=== PATIENT | female | born 1990 | race Caucasian/White ===

== ENCOUNTER 2019-11-29 08:00 | Outpatient (CLI) | payer MEDICAID ==
[2019-11-29 12:59] LABS: HGB - HEMOGLOBIN 13.5 g/dL (12.0-16.0); MEAN CORPUSCULAR HEMOGLOBIN 29.6 pg (27.0-31.0); MEAN CORPUSCULAR HGB CONC 32.5 g/dL (32.0-36.0); MEAN CORPUSCULAR VOLUME 91.2 fL (81.0-99.0); RED BLOOD COUNT 4.56 10^6/uL (4.20-5.40); RED CELL DISTRIBUTION WIDTH 12.6 % (12.0-15.0); WHITE BLOOD COUNT 7.5 x10^3/uL (4.8-10.8)
[2019-11-29 13:52] LABS: FOLLICLE STIMULATING HORMONE 9.54 mIU/mL
[2019-11-29 13:53] LABS: LUTEINIZING HORMONE 18.37 mIU/mL
== END 2019-11-29 23:59 | disposition home or self-care (01) ==
LOC: LAB.WCP 08:00
PROVIDERS: ATTEND Family Medicine
DX: N92.6 Irregular menstruation, unspecified (principal)
CPT/HCPCS: 36415; 82670; 83001; 83002; 84443; 85027

== ENCOUNTER 2019-12-29 22:16 | Outpatient (CLI) | payer MEDICAID | END 2019-12-29 23:59 | disposition EMS.NT | LOC: EMS 22:16 | PROVIDERS: ATTEND Surgery | DX: R45.89 Other symptoms and signs involving emotional state (principal) ==

== ENCOUNTER 2020-08-31 08:00 | Outpatient (CLI) | payer MEDICAID ==
[2020-08-31 20:51] LABS: TRICHOMONAS VAGINALIS DNA NEGATIVE (NEGATIVE)
== END 2020-08-31 23:59 | disposition home or self-care (01) ==
LOC: LAB.R 08:00
PROVIDERS: ATTEND Obstetrics & Gynecology
DX: Z11.3 Encounter for screening for infections with a predominantly sexual mode of transmission (principal)
CPT/HCPCS: 87491; 87591; 87661

== ENCOUNTER 2020-10-16 11:42 | Outpatient (CLI) | payer MEDICAID ==
[2020-10-16 18:50] LABS: PROLACTIN 11.82 ng/mL
[2020-10-16 19:14] LABS: FOLLICLE STIMULATING HORMONE 6.57 mIU/mL
[2020-10-17 07:36] LABS: HIV AG/AB 4TH GEN NON-REACTIVE (NON-REACTIVE)
[2020-10-17 12:26] LABS: HEPATITIS B SURFACE ANTIGEN NON-REACTIVE (NON-REACTIVE)
== END 2020-10-16 11:43 | disposition home or self-care (01) ==
LOC: LAB.N 11:42
PROVIDERS: ATTEND Obstetrics & Gynecology
DX: N91.5 Oligomenorrhea, unspecified (principal); Z11.3 Encounter for screening for infections with a predominantly sexual mode of transmission
CPT/HCPCS: 36415; 81599; 83001; 83498; 84146; 84403; 84702; 86592; 86593; 86780; 87340; 87389

== ENCOUNTER 2020-10-31 20:54 | Outpatient (CLI) | payer MEDICAID ==
--- NOTE | 2020-11-01 10:33 | Ultrasound Report ---
PROCEDURE: Pelvic w/Transvaginal INDICATIONS: BICORNUATE UTERUS, OLIGOMENORRHEA TECHNIQUE: Real-time scanning was performed of the pelvic organs, with image documentation. Additional endovagi nal scanning was necessary due to incomplete visualization of the adnexal and endometrial structures by transabdominal scanning. COMPARISON: None. FINDINGS: No pathologic free abdominal or pelvic fluid. Uterus: Uterus is bicornuate. The right horn measures 6.6 x 3.0 x 4.0 cm, with a volume of 41.6 mL. the left horn measures 7.2 x 2.9 x 4.4 cm with a volume of 47.5 mL. The right endometrial complex dolores sures 6.6 mm. The left endometrial complex measures 5.8 mm. Ovaries: Right ovary measures 4.1 x 2.9 x 4.3 cm, with a volume of 27.0 mL. Left ovary measures 3.6 x 1.9 x 2.8 cm with a volume of 10.2 mL. The right ovary contains a solid appearing next echogenicity lesion measuring 2.7 x 1.9 x 3.2 cm. IMPRESSION: 1. Bicornuate uterus as described above. Normal endometrial thickness of both horns. 2. Incidental note made of a noncystic right ovarian lesion which may potentially represent a fibroma or a dermoid. Dermoid is favored. Reviewed by: Carlos Cote MD on 11/01/2020 9:31 AM [facility] Approved by: Carlos Cote MD on 11/01/2020 9:31 AM [facility] Station ID: [id number]
== END 2020-10-31 20:55 | disposition home or self-care (01) ==
LOC: DI 20:54
PROVIDERS: ATTEND Obstetrics & Gynecology
DX: Q51.3 Bicornate uterus (principal)

== ENCOUNTER 2023-01-03 08:39 | Outpatient (CLI) | payer MEDICAID ==
[2023-01-03 11:42] LABS: BASOPHILS % (AUTO) 0.5 %; EOSINOPHILS # (AUTO) 0.6 10^3/uL (0.0-0.7); EOSINOPHILS % (AUTO) 7.4 %; HCT - HEMATOCRIT 45.1 % (37.0-47.0); HGB - HEMOGLOBIN 14.8 g/dL (12.0-16.0); LYMPHOCYTES # (AUTO) 2.6 10^3/uL (1.5-3.5); LYMPHOCYTES % (AUTO) 31.2 %; MEAN CORPUSCULAR HEMOGLOBIN 29.3 pg (27.0-31.0); MEAN CORPUSCULAR HGB CONC 32.8 g/dL (32.0-36.0); MEAN CORPUSCULAR VOLUME 89.3 fL (81.0-99.0); MONOCYTES # (AUTO) 0.6 10^3/uL (0.0-1.0); MONOCYTES % (AUTO) 7.4 %; NEUTROPHILS # (AUTO) 4.4 10^3/uL (1.5-6.6); NEUTROPHILS % (AUTO) 53.3 %; PLT - PLATELET COUNT 332 10^3/uL (130-450); RED BLOOD COUNT 5.05 10^6/uL (4.20-5.40); RED CELL DISTRIBUTION WIDTH 13.1 % (12.0-15.0); WHITE BLOOD COUNT 8.3 x10^3/uL (4.8-10.8)
[2023-01-03 12:25] LABS: ALBUMIN 4.2 g/dL (3.2-5.5); ALBUMIN/GLOBULIN RATIO 1.1 (1.0-2.2); ALKALINE PHOSPHATASE 72 IU/L (42-121); ALT ALANINE AMINOTRANSFERASE 25 IU/L (10-60); AST ASPARTATE AMINOTRANSFERASE 21 IU/L (10-42); BILIRUBIN,TOTAL 0.9 mg/dL (0.2-1.0); BUN - BLOOD UREA NITROGEN 16 mg/dL (6-20); CALCIUM 9.3 mg/dL (8.5-10.3); CARBON DIOXIDE - CO2 28 mmol/L (21-32); CHLORIDE 107 mmol/L (101-111); CHOL/HDL RATIO 3.5 (<4.4); CHOLESTEROL 180 mg/dL; CREATININE 0.7 mg/dL (0.4-1.0); GFR - MDRD 97 (>89); GLUCOSE 104 mg/dL (70-100); HDL CHOLESTEROL 52 mg/dL; LDL CHOLESTEROL,CALCULATED 105 mg/dL; POTASSIUM 4.1 mmol/L (3.5-5.0); SODIUM 139 mmol/L (135-145); TRIGLYCERIDES 116 mg/dL; VLDL CHOLESTEROL 23 mg/dL
[2023-01-03 12:27] LABS: THYROID STIMULATING HORMONE 1.19 uIU/mL (0.34-5.60)
== END 2023-01-03 08:40 | disposition home or self-care (01) ==
LOC: LAB.N 08:39
PROVIDERS: ATTEND Nurse Practitioner
DX: N91.2 Amenorrhea, unspecified (principal); Z13.220 Encounter for screening for lipoid disorders
CPT/HCPCS: 36415; 80050; 80061; 83721

== ENCOUNTER 2023-02-05 13:15 | Outpatient (CLI) | payer MEDICAID ==
[2023-02-05 14:26] LABS: THYROID STIMULATING HORMONE 1.56 uIU/mL (0.34-5.60)
[2023-02-05 14:32] LABS: PROLACTIN 10.08 ng/mL
[2023-02-05 14:45] LABS: ESTIMATED AVERAGE GLUCOSE 117 mg/dL (70-100); HEMOGLOBIN A1c% 5.7 % (4.27-6.07)
[2023-02-05 14:54] LABS: FOLLICLE STIMULATING HORMONE 7.3 mIU/mL
[2023-02-05 14:55] LABS: LUTEINIZING HORMONE 12.76 mIU/mL
[2023-02-06 23:07] LABS: ESTRADIOL 38.2 pg/mL (.); PROGESTERONE 0.2 ng/mL (.); SEX HORM BINDING GLOB SERUM 13.5 nmol/L (24.6-122.0)
[2023-02-07 16:08] LABS: FREE TESTOSTERONE(DIRECT) 4.7 pg/mL (0.0-4.2)
== END 2023-02-05 13:16 | disposition home or self-care (01) ==
LOC: LAB 13:15
PROVIDERS: ATTEND Nurse Practitioner
DX: N91.2 Amenorrhea, unspecified (principal); N92.6 Irregular menstruation, unspecified; R63.5 Abnormal weight gain
CPT/HCPCS: 36415; 82397; 82627; 82670; 83001; 83002; 83036; 84143; 84144; 84146; 84270; 84402; 84403; 84443

== ENCOUNTER 2023-02-15 12:30 | Outpatient (CLI) | payer MEDICAID ==
--- NOTE | 2023-02-16 09:25 | Mammography Report ---
BILATERAL DIGITAL DIAGNOSTIC MAMMOGRAM 3D/2D: 02/15/2023 CLINICAL: Baseline exam. Diffuse left breast pain. No prior exams were available for comparison. Both breasts are heterogeneously dense, which may obscure small masses (category c / 51-75% glandular tissue). There is an oval mass in the right breast at 8 o'clock posterior depth. No other significant masses, calcifications, or other findings are seen in either breast. IMPRESSION: INCOMPLETE: NEEDS ADDITIONAL IMAGING EVALUATION The oval mass in the right breast is indeterminate. An ultrasound is recommended. There is no abnormality seen in the left breast to correspond with the diffuse pain, however, clinica l correlation and clinical followup are recommended. Based on the Tyrer Cuzick model (a risk assessment model) the patients lifetime risk is 10.1% and he r 10 year risk is 0.5%. According to the ACR, ACS, and NCCN guidelines, an annual breast MRI exam jayne ng with mammogram is recommended if the patients lifetime risk is 20% or greater. This exam was interpreted at Station ID: [id number]. NOTE: For mammograms, a report in lay terms will be sent to the patient. Approximately 15% of breast malignancies will not be visualized mammographically. In the management of a palpable breast mass, a negative mammogram must not discourage biopsy of a clinically suspicious lesion. Electronically Signed By: Jordan Vyas M.D. lc/:02/15/2023 13:51:43 ACR BI-RADS Category 0: Incomplete 3340F PARENCHYMAL PATTERN: (D) - The breast(s) demonstrate(s) heterogeneously dense fibroglandular parenchy ma. BI-RADS CATEGORY: (0) - 0 Ultrasound [id number] Immediate follow-up LATERALITY: (B)
--- NOTE | 2023-02-16 09:26 | Ultrasound Report ---
LIMITED ULTRASOUND OF RIGHT BREAST: 02/15/2023 CLINICAL: Diffuse left breast pain. Comparison is made to exam dated: 02/15/2023 mammogram - [facility]. Color flow ultrasound of the right breast 8-10 o'clock region was performed. Mckay scale images of th e real-time examination were reviewed. There is a benign 0.6 cm normal lymph node in the right breast at 8 o'clock posterior depth. This co rrelates with mammography findings. IMPRESSION: BENIGN There is no sonographic evidence of malignancy. The 0.6 cm normal lymph node in the right breast is benign. Clinical followup recommended for left breast symptoms. Annual screening mammogram recommended at age 40 or sooner depending on risk factors. This exam was interpreted at Station ID: [id number]. Electronically Signed By: Jordan Vyas M.D. lc/:02/15/2023 13:53:29 letter sent: No_Letter Ultrasound BI-RADS: 2 Benign BI-RADS CATEGORY: (2) - 2 Unspecified - other recall n/a LATERALITY: (B)
== END 2023-02-15 12:31 | disposition home or self-care (01) ==
LOC: DI 12:30
PROVIDERS: ATTEND Nurse Practitioner
DX: N64.4 Mastodynia (principal); N63.13 Unspecified lump in the right breast, lower outer quadrant

== ENCOUNTER 2023-02-15 12:31 | Outpatient (CLI) | payer MEDICAID ==
--- NOTE | 2023-02-16 10:34 | Ultrasound Report ---
PROCEDURE: Pelvic w/Transvaginal INDICATIONS: BICORNUATE UTERUS TECHNIQUE: Real-time scanning was performed of the pelvic organs, with image documentation. Additional endovagi nal scanning was necessary due to incomplete visualization of the adnexal and endometrial structures by transabdominal scanning. COMPARISON: Ultrasound pelvis, 10/31/2020. FINDINGS: Uterus: Bicornuate uterus is anteverted. The right cornuate measures 6.9 x 2.4 x 3.3 cm. The left c ornuate measures 8.1 x 3.0 x 3.1 cm. The myometrium is heterogeneous. The endometrium measures 4.1- 5.1 mm in combined thickness. Ovaries: The right ovary measures 3.2 x 2.2 x 3 point cm, with a calculated ovarian volume of 11.8 c c. The left ovary measures 3.3 x 2.9 x 2.4 cm, with a calculated ovarian volume of 12.0 cc. The ova bruce have a normal sonographic appearance. Greater than 12 follicles can be seen in each ovary which are arranged peripherally, suspicious for polycystic ovaries. No adnexal masses are seen. No cystic lesions measuring greater than 3 cm. Other: No discrete of right pelvic kidney. No hydronephrosis. No pathologic free abdominal or pelvic fluid. IMPRESSION: 1. Bicornuate uterus. 2. Suspect polycystic ovaries. 3. Right pelvic kidney. Reviewed by: Manuel Haile MD on 02/16/2023 10:33 AM PDT Approved by: Manuel Haile MD on 02/16/2023 10:33 AM PDT Station ID: [id number]
== END 2023-02-15 12:32 | disposition home or self-care (01) ==
LOC: DI 12:31
PROVIDERS: ATTEND Nurse Practitioner
DX: Q51.3 Bicornate uterus (principal); N92.6 Irregular menstruation, unspecified; N91.2 Amenorrhea, unspecified